=== PATIENT | female | born 1955 | race Two or more races ===

== ENCOUNTER 2023-12-22 10:12 | Outpatient (CLI) | payer OTHER ==
[~2023-12-22 10:12] MED LIST: ADVIL100 M1; ATORVASTATIN CA20 MG
== END 2023-12-22 10:14 | disposition home or self-care (01) ==
LOC: SONOGRAMA 10:12
PROVIDERS: ATTEND Pathology Anatomic Pathology & Clinical Pathology
DX: D34 Benign neoplasm of thyroid gland (principal); E07.89 Other specified disorders of thyroid; E04.1 Nontoxic single thyroid nodule